=== PATIENT | male | born 1990 | race African-American/Black ===

== ENCOUNTER 2021-01-26 11:16 | Emergency (ER) | payer OTHER ==
[2021-01-26 11:51] VITALS: TEMP 99.1; BMI 21.4
[2021-01-26] MEDS ORDERED: SODIUM CHLORIDE 1,000 ML IV STA (12:02)
[2021-01-26] MEDS ORDERED: ONDANSETRON 4 MG/2 ML VIAL IVPB ONE (12:02)
[2021-01-26] MEDS ORDERED: ONDANSETRON 4 MG/2 ML VIAL ONE (12:03)
[2021-01-26 12:24] LABS: HEMOGLOBIN 16.7 GM/dl (11.7-16.9)
[2021-01-26 12:26] LABS: BASO % 1.8 % (0-2.0); EOS % 0.4 % (0-4.5); HEMATOCRIT 47.8 % (35.4-49); LYMPH % 27.1 % (8-40); MCH 29.7 pg (25.7-33.7); MEAN CELL VOLUME 84.9 fl (80-96); MONO % 11.5 % (3.8-10.2); NEUT % 59.2 % (42.8-82.8); PLATELET COUNT 212 10^3/uL (134-434); RBC 5.63 M/mm3 (4.00-5.60); RDW 11.2 % (11.9-15.9); WHITE BLOOD COUNT 9.6 K/mm3 (4.0-10.8)
[2021-01-26 12:42] LABS: BILIRUBIN,TOTAL 3.7 mg/dl (0.2-1); CALCIUM 9.8 mg/dl (8.5-10); CREATININE 1.1 mg/dl (0.55-1.3); TOT PROT 8.9 g/dl (6.4-8.2)
[2021-01-26] MEDS ORDERED: FAMOTIDINE 20 MG/50 ML IVPB 20 MG/50 ML MG IVPB ONE ×3 (15:09→15:11)
[2021-01-26] MEDS ORDERED: HALOPERIDOL DECANOATE 100 MG/ML IM ONE (15:14)
[2021-01-26] MEDS: PANTOPRAZOLE SODIUM 40 MG in SODIUM CHLORIDE 100 ML IVPB ONE ×2 (15:18→15:42)
[2021-01-26] MEDS ORDERED: PANTOPRAZOLE SODIUM 40 MG VIAL ONE (15:21)
[2021-01-26] MEDS ORDERED: HALOPERIDOL LACTATE 5 MG/ML IV ONE (15:22)
[2021-01-26] MEDS ORDERED: HALOPERIDOL LACTATE 5 MG/ML SYRINGE ONE (15:23)
[2021-01-26 18:04] VITALS: BP 100/64; PULSE 84
== END 2021-01-26 18:39 | disposition home or self-care (01) ==
LOC: FER 11:16
PROC: 3E033NZ Introduction of Analgesics, Hypnotics, Sedatives into Peripheral Vein, Percutaneous Approach (ICD-10-PCS; principal; 2021-01-26)
PROC: 3E033GC Introduction of Other Therapeutic Substance into Peripheral Vein, Percutaneous Approach (ICD-10-PCS; 2021-01-26)
PROC: 3E0337Z Introduction of Electrolytic and Water Balance Substance into Peripheral Vein, Percutaneous Approach (ICD-10-PCS; 2021-01-26)
PROC: 3E023NZ Introduction of Analgesics, Hypnotics, Sedatives into Muscle, Percutaneous Approach (ICD-10-PCS; 2021-01-26)
DX: R11.2 Nausea with vomiting, unspecified (principal)
CPT/HCPCS: 36415; 76705-TC; 80053; 83690; 85025; 93005; 96361; 96365; 96372; 96375; 99285-25

== ENCOUNTER 2021-01-29 19:45 | Emergency (ER) | payer OTHER ==
[2021-01-29 19:52] VITALS: BP 121/87; PULSE 108; TEMP 98.2; BMI 20.7
[2021-01-29] MEDS ORDERED: SODIUM CHLORIDE 1,000 ML IV STA (20:52)
[2021-01-29] MEDS ORDERED: FAMOTIDINE 20 MG/50 ML IVPB 20 MG/50 ML MG IVPB ONE ×2 (20:53→21:05)
[2021-01-29] MEDS ORDERED: SUCRALFATE 1 GM/10 ML UNIT DOSE CUPS PO ONE (21:00)
[2021-01-29 21:47] LABS: BASO % 0.5 % (0-2.0); EOS % 0.5 % (0-4.5); HEMATOCRIT 48.5 % (35.4-49); HEMOGLOBIN 16.5 GM/dL (11.7-16.9); LYMPH % 29.5 % (8-40); MCH 28.3 pg (25.7-33.7); MCHC 33.9 g/dl (32.0-35.9); MEAN CELL VOLUME 83.5 fl (80-96); MEAN PLT VOLUME 8.3 fl (7.5-11.1); NEUT % 59.5 % (42.8-82.8); PLATELET COUNT 227 10^3/uL (134-434); RBC 5.81 M/mm3 (4.00-5.60); RDW 12.5 % (11.9-15.9); WHITE BLOOD COUNT 7.3 K/mm3 (4.0-10.0)
[2021-01-29 22:09] LABS: ALBUMIN 4.5 g/dl (3.4-5.0); CALCIUM 9.5 mg/dL (8.5-10.1)
[2021-01-29 22:10] LABS: BLOOD UREA NITROGEN 20.6 mg/dL (7-18)
[2021-01-29 22:12] LABS: CREATININE 1.3 mg/dL (0.55-1.3)
[2021-01-29 22:14] LABS: BILIRUBIN,TOTAL 3.3 mg/dL (0.2-1); TOT PROT 8.5 g/dl (6.4-8.2)
[2021-01-29] MEDS ORDERED: POTASSIUM CHLORIDE ORAL LIQUID 20 MEQ/15 ML PO ONE (22:21)
[2021-01-29] MEDS ORDERED: POTASSIUM CHLORIDE ORAL LIQUID 20 MEQ/15 ML ONE (22:33)
[2021-01-29] MEDS ORDERED: ONDANSETRON 4 MG/2 ML VIAL IVPUSH ONE (22:41)
[2021-01-29] MEDS ORDERED: ONDANSETRON 4 MG/2 ML VIAL ONE (22:42)
== END 2021-01-30 00:15 | disposition home or self-care (01) ==
LOC: JER 19:45
PROC: 3E033GC Introduction of Other Therapeutic Substance into Peripheral Vein, Percutaneous Approach (ICD-10-PCS; principal; 2021-01-29)
PROC: 3E033GC Introduction of Other Therapeutic Substance into Peripheral Vein, Percutaneous Approach (ICD-10-PCS; 2021-01-29)
PROC: 3E0337Z Introduction of Electrolytic and Water Balance Substance into Peripheral Vein, Percutaneous Approach (ICD-10-PCS; 2021-01-29)
DX: R10.13 Epigastric pain (principal)
CPT/HCPCS: 36415; 80053; 83690; 85025; 99284-25

== ENCOUNTER 2022-11-21 01:02 | Emergency (ER) | payer SELFPAY ==
[2022-11-21 01:09] VITALS: BP 128/89; PULSE 71; RESP 18; TEMP 97.7; BMI 23.1
[2022-11-21] MEDS ORDERED: ONDANSETRON 4 MG/2 ML VIAL ONE (01:16)
[2022-11-21] MEDS ORDERED: ACETAMINOPHEN INJECTION 100 ML IVPB ONE (01:18)
[2022-11-21] MEDS ORDERED: ONDANSETRON 4 MG/2 ML VIAL IVPB ONE (01:29)
[2022-11-21] MEDS ORDERED: SODIUM CHLORIDE 1,000 ML IV ONE ×2 (01:29→01:30)
[2022-11-21] MEDS ORDERED: ACETAMINOPHEN 1000 MG/100 ML BAG IVPB ONE (01:29)
[2022-11-21] MEDS ORDERED: METOCLOPRAMIDE HCL INJECTION 10 MG/2 ML VIAL IVPUSH ONE (02:36)
[2022-11-21] MEDS ORDERED: morphine CARPU-JECT 2 MG/1 ML DISP.SYRIN IVPUSH ONE ×2 (02:36→05:30)
[2022-11-21] MEDS ORDERED: morphine SULFATE 4 MG/ML VIAL ONE ×2 (02:38→05:18)
[2022-11-21] MEDS ORDERED: METOCLOPRAMIDE HCL INJECTION 10 MG/2 ML VIAL ONE (02:39)
[2022-11-21 03:21] LABS: HEMATOCRIT 47.7 % (35.4-49); MCH 27.9 pg (25.7-33.7); MCHC 33.5 g/dl (32.0-35.9); MEAN CELL VOLUME 83.3 fl (80-96); MEAN PLT VOLUME 8.8 fl (7.5-11.1); PLATELET COUNT 279 10^3/uL (134-434); RBC 5.73 M/mm3 (4.00-5.60); WHITE BLOOD COUNT 9.6 K/mm3 (4.0-10.0)
[2022-11-21 03:37] LABS: CALCIUM 10.1 mg/dL (8.5-10.1)
[2022-11-21 03:38] LABS: ALBUMIN 4.8 g/dl (3.4-5.0); BLOOD UREA NITROGEN 16.1 mg/dL (7-18)
[2022-11-21 03:41] LABS: CREATININE 1.3 mg/dL (0.55-1.3)
[2022-11-21 03:43] LABS: BILIRUBIN,TOTAL 1.5 mg/dL (0.2-1); TOT PROT 9.1 g/dl (6.4-8.2)
== END 2022-11-21 06:53 | disposition home or self-care (01) ==
LOC: FER 01:02
PROC: 3E033NZ Introduction of Analgesics, Hypnotics, Sedatives into Peripheral Vein, Percutaneous Approach (ICD-10-PCS; principal; 2022-11-21)
PROC: 3E033GC Introduction of Other Therapeutic Substance into Peripheral Vein, Percutaneous Approach (ICD-10-PCS; 2022-11-21)
PROC: 3E033GC Introduction of Other Therapeutic Substance into Peripheral Vein, Percutaneous Approach (ICD-10-PCS; 2022-11-21)
PROC: 3E033GC Introduction of Other Therapeutic Substance into Peripheral Vein, Percutaneous Approach (ICD-10-PCS; 2022-11-21)
PROC: 3E033GC Introduction of Other Therapeutic Substance into Peripheral Vein, Percutaneous Approach (ICD-10-PCS; 2022-11-21)
PROC: 3E0337Z Introduction of Electrolytic and Water Balance Substance into Peripheral Vein, Percutaneous Approach (ICD-10-PCS; 2022-11-21)
DX: R11.2 Nausea with vomiting, unspecified (principal)
CPT/HCPCS: 36415; 74177-TC; 80053; 85027; 99285-25; Q9967

== ENCOUNTER 2022-11-26 21:00 | Inpatient (IN) | payer SELFPAY ==
[2022-11-26] MEDS ORDERED: SODIUM CHLORIDE 1,000 ML IV ONE ×2 (21:08→22:36)
[2022-11-26] MEDS ORDERED: ONDANSETRON 4 MG/2 ML VIAL IVPB ONE (21:08)
[2022-11-26] MEDS ORDERED: ONDANSETRON 4 MG/2 ML VIAL ONE (21:15)
[2022-11-26 22:02] LABS: HEMATOCRIT 50.8 % (35.4-49); HEMOGLOBIN 17.4 G/dL (11.7-16.9); MCH 29.3 pg (25.7-33.7); MCHC 34.2 g/dl (32.0-35.9); MEAN CELL VOLUME 85.6 fl (80-96); MEAN PLT VOLUME 9.1 fl (7.5-11.1); PLATELET COUNT 201.1 10^3/uL (134-434); RBC 5.93 10^6/uL (4.00-5.60); RDW 14.1 % (11.9-15.9); WHITE BLOOD COUNT 7.1 10^3/uL (4.0-10.8)
[2022-11-26 22:04] LABS: INR 1.27 (0.83-1.09); PROTHROMBIN TIME (PATIENT) 14.6 SEC (9.7-13.0)
[2022-11-26 22:09] LABS: ALBUMIN 4.7 g/dl (3.4-5.0); BILIRUBIN,TOTAL 3.7 mg/dl (0.2-1); CREATININE 1.1 mg/dl (0.55-1.3); TOT PROT 8.7 g/dl (6.4-8.2)
[2022-11-26] MEDS ORDERED: morphine CARPU-JECT 2 MG/1 ML DISP.SYRIN IVPUSH ONE (22:36)
[2022-11-26] MEDS ORDERED: morphine SULFATE 4 MG/ML VIAL ONE (22:38)
[2022-11-26] MEDS ORDERED: SODIUM CHLORIDE 1,000 ML IV SCH (23:00)
[2022-11-27] MEDS ORDERED: POTASSIUM CHLORIDE ORAL LIQUID 20 MEQ/15 ML ONE (01:03)
[2022-11-27] MEDS: POTASSIUM CHLORIDE ORAL LIQUID 20 MEQ/15 ML PO SCH ×2 (01:15→04:27)
[2022-11-27 02:15] VITALS: BMI 22.4
[2022-11-27 04:57] VITALS: RESP 18
[2022-11-27 08:42] LABS: ALBUMIN 3.7 g/dl (3.4-5.0); BILIRUBIN,TOTAL 2.9 mg/dl (0.2-1); CALCIUM 9.1 mg/dl (8.5-10); CREATININE 1.1 mg/dl (0.55-1.3); MAGNESIUM 1.8 mg/dL (1.8-2.4); POTASSIUM 4.4 mmol/L (3.5-5.1); TOT PROT 6.8 g/dl (6.4-8.2)
[2022-11-27 09:10] LABS: EPITHELIAL CELLS RARE /hpf
[2022-11-27 10:09] LABS: BILIRUBIN,DIRECT 0.3 mg/dL (0.0-0.2)
[2022-11-27] MEDS ORDERED: METOCLOPRAMIDE HCL INJECTION 10 MG/2 ML VIAL IVPUSH ONE (11:50)
[2022-11-27 14:39] VITALS: BP 112/56; PULSE 65; TEMP 98.6
== END 2022-11-27 15:46 | disposition home or self-care (01) | DRG 249 ==
LOC: FER 21:00 → FM/S 11-27 01:06
PROVIDERS: ADMIT Internal Medicine
DX: R11.15 Cyclical vomiting syndrome unrelated to migraine (principal); K29.70 Gastritis, unspecified, without bleeding; K21.9 Gastro-esophageal reflux disease without esophagitis; E87.6 Hypokalemia; E86.0 Dehydration
CPT/HCPCS: 0241U-QW; 36415; 80048; 80053; 81003; 81015; 82248; 83605; 83690; 83735; 85027; 85610; 87491; 87591; 87661; 99285-25